=== PATIENT | female | born 1965 | race Caucasian/White ===

== ENCOUNTER → 2016-11-09 | Day surgery (SDC) | payer OTHER ==
[~2016-11-09] MED LIST: BUPIVACAINE/EPINEPHRINE 0.25% 50 ML VIAL ONE; BUPIVACAINE/EPINEPHRINE 0.5% 50 ML VIAL ONE; HEPARIN SODIUM - IV 10,000 UNITS/10 ML VIAL ONE; ISOSULFAN BLUE 50 MG/5 ML VIAL SQ ONE; LACTATED RINGER'S 1000 ML INJ 1,000 ML ONE; LIDOCAINE 1%/EPINEPHrine 1:100,000 SOLN 50 ML VIAL ONE; MEPERIDINE HCL 25 MG/ML VIAL ONE; MIDAZOLAM HCL 2 MG/2 ML VIAL ONE; PROPOFOL 200 MG/20 ML AMP IV ONE; SODIUM CHLORIDE 0.9% 20 ML VIAL ONE; ceFAZolin INJ 1,000 MG VIAL ONE
--- NOTE | 2016-11-09 16:34 | TN ---
cc: REINIER PAUL M.D., ZAFAR MD DATE OF SURGERY 11/09/2016 PREOPERATIVE DIAGNOSIS Right-sided breast cancer in need of breast conservation and placement of [id number]. POSTOPERATIVE DIAGNOSIS Right-sided breast cancer in need of breast conservation and placement of [id number]-T-[id number]. PROCEDURE 1. Left-sided placement [id number]-[id number] under fluoroscopic guidance. 2. Injection of Lymphazurin blue dye for identification and lymphatic mapping of sentinel nodes x2. 3. [place] node identification of two lymph nodes ex vivo count #1 972. Ex vivo count #2 399. 4. Needle-localized excisional quadrantectomy right lower outer quadrant right breast. ANESTHESIA General. SURGEON Dr. Paul. INDICATION This is a pleasant 51-year-old female who was found to have an invasive breast cancer. She was HER2 positive. She has seen a medical oncologist, Dr. Lucia. Plans were made for the above. PROCEDURE The patient taken to the operating room and placed in the position after anesthesia. She had previously been down to radiology where a guidewire was placed in the outer lower quadrant right breast. We inject 6 mL of Lymphazurin blue dye for lymphatic mapping. We are able to get a hot spot in the axillary region. After a time-out, prepping and draping with Betadine and given preoperative antibiotics we make an incision in the left infraclavicular area after cannulating the subclavian vein with the kit contained with the Quexeo-V-Tyqq kit. The guidewire was advanced under fluoroscopic guidance. A subcutaneous pocket is then made. The dilator introducer was then placed over the guidewire. The guidewire was removed. The catheter was then threaded into the introducer to a length of 20 cm where it was cut. The introducer was removed. The port is then attached to the catheter and snapped in place. The deep layer was closed with a 3-0 Vicryl and skin is closed with 4-0 Vicryl. It aspirates blood quite easily and flushed with heparinized saline solution. We close the deep layer and a sterile bandage is applied. We then direct our attention to the right side, right breast. We make an axillary incision after anesthetizing with Marcaine solution. We dissect down in to the axillary space identifying two hot nodes that were blue and the blue lymphatic channel can be seen coursing into the lymph node. The first one which is deep measures 972 on the ex vivo count. A second lymph node was found a little bit more proximal which is blue with an ex vivo count of 399. No other lymphadenopathy is appreciated. There is no other hot spot. After assuring hemostasis the skin is closed with a 4-0 Vicryl. We then direct our attention to the outer lower quadrant of the right breast where the guidewire was placed. It is about 6 cm from the nipple-areolar complex. The guidewire has been placed going in a lateral to medial direction in a slightly inferior to superior direction. Make a curvilinear incision, dissect circumferentially around the guidewire with sharp dissection, removing the specimen. The last thread of tissue that was removed the guidewire did become displaced. It is marked superiorly with a short stitch and a long stitch placed laterally. The specimen sent down to radiology where Dr. Balta Galloway states the area in question appears to have been removed. No other gross abnormalities felt in the quadrantectomy site. We then irrigate, assure hemostasis. The deep layers closed with a 3-0 Vicryl and skin is closed with 4-0 Vicryl. Steri-Strips applied. Sterile bandage applied. The patient tolerated the procedure and had no immediate postoperative complications. Stat portable chest x-ray done shows good placement without pneumothorax. Reinier Paul MD JALVINO/KK /3:18 PM /4:07 PM
== END | disposition home or self-care (01) ==
LOC: MERGE 07:59 → ESDC 07:59
PROVIDERS: ATTEND Surgery
DX: C50.911 Malignant neoplasm of unspecified site of right female breast (principal); Z17.0 Estrogen receptor positive status [ER+]
CPT/HCPCS: 00400; 00532; 01610; 19125; 36561; 38525; 38792; 76000; 88307; C1788; J0690; J1644; J2175; J2250; J3010; J7120; Q9968

== ENCOUNTER 2017-02-04 19:57 | Emergency (ER) | payer OTHER ==
[~2017-02-04] VITALS: Ht 162.6 cm; Wt 62.0 kg
[2017-02-04 20:10] VITALS: BP 100/56; PULSE 81; RESP 16; TEMP 98.5; O2SAT 100
--- NOTE | 2017-02-04 20:47 | PD ---
HPI Chief Complaint: Syncope/Near-Syncope Time Seen by Provider: 20:40 Travel History International Travel<30 days: No Contact w/Intl Traveler<30days: No Traveled to known affect area: No History of Present Illness HPI This is a 52 year old female with history of breast cancer, undergoing chemotherapy, who presents here after having a syncopal episode. The patient states that she was in her kitchen washing dishes when she felt dizzy and lightheaded. She states she walked into the living room and the next thing she remembers is her son standing over her calling 911. She denies any previous episodes of syncope. She does report that she had a slight headache today. She does report that she's not been drinking enough fluid over last 2 days. There is no reported diarrhea. She does have nausea now but denies any vomiting. There is no reported abdominal pain. She has reported urine is darker than normal. She denies dysuria, incontinence, frequency. There are no other complaints time my examination. PFSH Past Medical History Cancer: Yes (L BREAST) Chemotherapy: Yes (EVER 3 WEEKS, LAST DONE 02/01/17) Diminished Hearing: No Tetanus Vaccination: Unknown Influenza Vaccination: Yes ?: Not Menopausal: Yes Past Surgical History Gynecologic Surgery: Yes (CHEMICAL ABLATION) Other Surgery: Yes (CYST REMOVED FROM NECK, LUMPECTOMY/LYMPH NODES REMOVED L BREAST) Social History Alcohol Use: Yes (OCCASIONALLY) Tobacco Use: Yes (1/2 PPD) Substance Use: No Allergies-Medications (Allergen,Severity, Reaction): Coded Allergies: No Known Allergies (Unverified , 02/04/17) Review of Systems Except as stated in HPI: all other systems reviewed are Neg General / Constitutional: No: Fever Eyes: No: Diploplia, Blurred Vision HENT: Positive: Headaches, Lightheadedness, No: Vertigo (mild earlier today), Neck Pain Cardiovascular: Positive: Palpitations (prior to passing out), Syncope, No: Chest Pain or Discomfort Respiratory: Positive: Cough (dry), No: Shortness of Breath, Wheezing Gastrointestinal: Positive: Nausea, No: Vomiting, Diarrhea, Abdominal Pain Genitourinary: No: Frequency, Dysuria, Decreased Urinary Output Musculoskeletal: No: Myalgias, Arthralgias, Pain Skin: Positive Dryness Neurologic: Positive: Dizziness, Syncope, Headache (mild), No: Weakness Physical Exam Narrative GENERAL: Well developed well-nourished female in no acute respiratory distress. SKIN: Focused skin assessment warm/dry. HEAD: Atraumatic. Normocephalic. EYES: Pupils equal and round. No scleral icterus. No injection or drainage. ENT: No nasal bleeding or discharge. Mucous membranes pink and dry. NECK: Trachea midline. No JVD. Supple. CARDIOVASCULAR: Regular rate and rhythm. No murmur appreciated. RESPIRATORY: No accessory muscle use. Clear to auscultation. Breath sounds equal bilaterally. GASTROINTESTINAL: Abdomen soft, non-tender, nondistended. MUSCULOSKELETAL: No obvious deformities. No clubbing. No cyanosis. No edema. NEUROLOGICAL: Awake and alert. No obvious cranial nerve deficits. Motor grossly within normal limits. Normal speech. PSYCHIATRIC: Appropriate mood and affect; insight and judgment normal. Data Data Last Documented VS Vital Signs Date Time Temp Pulse Resp B/P Pulse Ox O2 Delivery O2 Flow Rate FiO2 02/04/17 21:55 85 16 108/59 100 Room Air 02/04/17 20:10 98.5 Orders Complete Blood Count With Diff (02/04/17 20:50) Comprehensive Metabolic Panel (02/04/17 20:50) Ckmb (Isoenzyme) Profile (02/04/17 20:50) Troponin I (02/04/17 20:50) Urinalysis - C+S If Indicated (02/04/17 20:50) Chest, Single Ap (02/04/17 20:50) Ct Brain W/O Iv Contrast(Rout) (02/04/17 20:50) Ecg Monitoring (02/04/17 20:50) Iv Access Insert/Monitor (02/04/17 20:50) Oximetry (02/04/17 20:50) Ondansetron Inj (Zofran Inj) (02/04/17 21:00) Sodium Chloride 0.9% Flush (Ns Flush) (02/04/17 21:00) Sodium Chlor 0.9% 1000 Ml Inj (Ns 1000 M (02/04/17 20:50) Acetaminophen (Tylenol) (02/04/17 22:00) Electrocardiogram (02/04/17 20:16) Sodium Chlor 0.9% 1000 Ml Inj (Ns 1000 M (02/04/17 23:30) Labs Laboratory Tests Test 02/04/17 02/04/17 20:30 22:55 White Blood Count 19.6 TH/MM3 Red Blood Count 3.13 MIL/MM3 Hemoglobin 9.8 GM/DL Hematocrit 28.4 % Mean Corpuscular Volume 90.6 FL Mean Corpuscular Hemoglobin 31.4 PG Mean Corpuscular Hemoglobin 34.6 % Concent Red Cell Distribution Width 16.8 % Platelet Count 256 TH/MM3 Mean Platelet Volume 8.5 FL Neutrophils (%) (Auto) % Lymphocytes (%) (Auto) % Monocytes (%) (Auto) % Eosinophils (%) (Auto) % Basophils (%) (Auto) % Neutrophils # (Auto) TH/MM3 Lymphocytes # (Auto) TH/MM3 Monocytes # (Auto) TH/MM3 Eosinophils # (Auto) TH/MM3 Basophils # (Auto) TH/MM3 CBC Comment AUTO DIFF Differential Total Cells 100 Counted Neutrophils % (Manual) 67 % Band Neutrophils % 17 % Lymphocytes % 13 % Monocytes % 1 % Neutrophils # (Manual) 16.9 TH/MM3 Metamyelocytes 2 % Differential Comment FINAL DIFF MANUAL Toxic Vacuolation PRESENT Platelet Estimate NORMAL Platelet Morphology Comment NORMAL Red Cell Morphology Comment NORMAL Sodium Level 138 MEQ/L Potassium Level 4.4 MEQ/L Chloride Level 107 MEQ/L Carbon Dioxide Level 23.5 MEQ/L Anion Gap 8 MEQ/L Blood Urea Nitrogen 22 MG/DL Creatinine 0.69 MG/DL Estimat Glomerular Filtration 89 ML/MIN Rate Random Glucose 82 MG/DL Calcium Level 8.3 MG/DL Total Bilirubin 0.5 MG/DL Aspartate Amino Transf 42 U/L (AST/SGOT) Alanine Aminotransferase 72 U/L (ALT/SGPT) Alkaline Phosphatase 109 U/L Total Creatine Kinase 86 U/L Troponin I LESS THAN 0.02 NG/ML Total Protein 6.3 GM/DL Albumin 3.1 GM/DL Urine Color YELLOW Urine Turbidity CLEAR Urine pH 6.5 Urine Specific [place] 1.010 Urine Protein NEG mg/dL Urine Glucose (UA) NEG mg/dL Urine Ketones NEG mg/dL Urine Occult Blood NEG Urine Nitrite NEG Urine Bilirubin NEG Urine Urobilinogen LESS THAN 2.0 MG/DL Urine Leukocyte Esterase MOD Urine RBC 1 /hpf Urine WBC 2 /hpf Urine Squamous Epithelial 1 /hpf Cells Urine Bacteria RARE /hpf Urine Hyaline Casts 1 /lpf Urine Mucus FEW /lpf Microscopic Urinalysis Comment CULT NOT INDICATED MDM Medical Decision Making Medical Screen Exam Complete: Yes Emergency Medical Condition: Yes Differential Diagnosis Vasovagal syncope versus metabolic arrangement versus metastatic brain lesions Narrative Course 52-year-old female with a history of breast cancer, presents after having a syncopal episode. The patient was noted to be volume depleted. She's been given 2 L of I V fluids. She walked to the bathroom after her second liter and felt fine. She is anemic with a hemoglobin of 9.3. Her white count was 18, 000. She has been receiving Neulasta with her chemotherapy and she'll be discharged and told to drink plenty fluids. She is instructed to take it easy and rest. She'll follow up with her hematology doctor next week. Diagnosis Primary Impression: Syncope Additional Impressions: Anemia Dehydration History of breast cancer Additional Instructions: Increase fluid intake. Rest and avoid heat. Return if feeling worse. Disposition: 01 DISCHARGE HOME Condition: Stable Jc Leos MD Feb 04, 2017 20:47
[2017-02-04] MEDS ORDERED: SODIUM CHLOR 0.9% 1000 ML INJ 1,000 ML IV ONE ×2 (20:50→23:30)
[2017-02-04] MEDS ORDERED: ONDANSETRON HCL 4 MG/2 ML VIAL IVP ONE (21:00)
[2017-02-04] MEDS ORDERED: SODIUM CHLORIDE 0.9% FLUSH 10 ML FLUSH IVF PRN (21:00)
[2017-02-04 21:32] LABS: HEMATOCRIT 28.4 % (35.0-46.0); MEAN CELL VOLUME 90.6 FL (80.0-100.0); MEAN CORPUSCULAR HEMOGLOBIN 31.4 PG (27.0-34.0); MEAN CORPUSCULAR HGB CONC 34.6 % (32.0-36.0); PLATELET COUNT 256 TH/MM3 (150-450); RED BLOOD COUNT 3.13 MIL/MM3 (4.00-5.30); RED CELL DISTRIBUTION WIDTH 16.8 % (11.6-17.2); WHITE BLOOD COUNT 19.6 TH/MM3 (4.0-11.0)
[2017-02-04 21:35] LABS: HEMO FLAGS AUTO DIFF
--- NOTE | 2017-02-04 21:45 | RADRPT ---
EXAM DATE/TIME: 02/04/2017 21:10 [facility] COMPARISON: No previous studies available for comparison. INDICATIONS : Palpitations MEDICAL HISTORY : Carcinoma, breast. SURGICAL HISTORY : [id number] ENCOUNTER: Initial ACUITY: 1 day PAIN SCORE: 0/10 LOCATION: Bilateral chest FINDINGS: There is a left subclavian CT compatible [id number] in place with tip in the SVC. The heart size i s normal. The lungs are free of focal consolidation. There some emphysematous/bullous change in the r ight upper lung. CONCLUSION: No acute abnormality is seen. Theodore Wilkins MD on February 04, 2017 at 21:41 Board Certified Radiologist. This report was verified electronically.
[2017-02-04 21:55] VITALS: BP 108/59; PULSE 85; RESP 16; O2SAT 100
--- NOTE | 2017-02-04 21:56 | RADRPT ---
EXAM DATE/TIME: 02/04/2017 21:20 [facility] COMPARISON: No previous studies available for comparison. INDICATIONS : Syncopal episode. Currently on chemo treatments. RADIATION DOSE: 31.02 CTDIvol (mGy) MEDICAL HISTORY : Breast cancer, left. SURGICAL HISTORY : Lumpectomy. ENCOUNTER: Initial ACUITY: 1 day PAIN SCALE: 0/10 LOCATION: cranial TECHNIQUE: Multiple contiguous axial images were obtained of the head. Using automated exposure control and adj ustment of the mA and/or kV according to patient size, radiation dose was kept as low as reasonably a chievable to obtain optimal diagnostic quality images. DICOM format image data is available electro nically for review and comparison. FINDINGS: CEREBRUM: The ventricles are normal for age. No evidence of midline shift, mass lesion, hemorrhage or acute in farction. No extra-axial fluid collections are seen. POSTERIOR FOSSA: The cerebellum and brainstem are intact. The 4th ventricle is midline. The cerebellopontine angle i s unremarkable. EXTRACRANIAL: The visualized portion of the orbits is intact. SKULL: The calvaria is intact. No evidence of skull fracture. CONCLUSION: No acute disease. Theodore Wilkins MD on February 04, 2017 at 21:54 Board Certified Radiologist. This report was verified electronically.
[2017-02-04 21:59] LABS: BANDS 17 % (0-6); METAMYELOCYTES 2 % (0-1); NEUTROPHIL # MANUAL DIFF 16.9 TH/MM3 (1.8-7.7); POLYS (SEG NEUTROPHILS) 67 % (16-70); WBC DIFF SAMPLE 100
[2017-02-04 22:00] LABS: PLATELET ESTIMATE SMEAR NORMAL (NORMAL); PLATELET MORPHOLOGY NORMAL (NORMAL); SCAN/DIFF FINAL DIFF MANUAL; TOXIC VACUOLATION PRESENT (NONE SEEN)
[2017-02-04] MEDS ORDERED: ACETAMINOPHEN 325 MG TAB PO ONE (22:00)
[2017-02-04 22:01] LABS: ALT (GPT) 72 U/L (10-53)
[2017-02-04 22:14] LABS: ALKALINE PHOSPHATASE 109 U/L (45-117); ANION GAP 8 MEQ/L (5-15); AST (GOT) 42 U/L (15-37); BICARBONATE 23.5 MEQ/L (21.0-32.0); BLOOD UREA NITROGEN 22 MG/DL (7-18); CHLORIDE 107 MEQ/L (98-107); GLOMERULAR FILTRATION RATE 89 ML/MIN (>89); POTASSIUM 4.4 MEQ/L (3.5-5.1); SODIUM (NA) 138 MEQ/L (136-145); TOTAL BILIRUBIN ADULT 0.5 MG/DL (0.2-1.0)
[2017-02-04 22:22] LABS: CREATINE KINASE 86 U/L (26-192)
[2017-02-04 23:42] LABS: BACTERIA, URINE RARE /hpf; BLOOD, URINE NEG (NEG); COMMENT (UR) CULT NOT INDICATED; CULTURE IF INDICATED CULT NOT INDICATED; GLUCOSE,URINE NEG (NEG); HYALINE CAST, URINE 1 /lpf (RARE); KETONE, URINE NEG (NEG); MUCUS URINE FEW /lpf (OCC); NITRITE,URINE NEG (NEG); PH, URINE 6.5 (5.0-8.5); SQUAMOUS EPITHELIAL CELL URINE 1 /hpf (0-5); URINE COLOR YELLOW (YELLW/STRAW)
[2017-02-05 01:51] VITALS: BP 106/58
--- NOTE | 2017-02-05 13:18 | EKG ---
Date Performed: 02/04/2017 Time Performed: 20:16:46 PTAGE: 52 years EKG: Sinus rhythm NORMAL ECG NO PREVIOUS TRACING DOCTOR: Eva Gamino Interpretating Date/Time 02/05/2017 13:17:32
== END 2017-02-05 01:52 | disposition home or self-care (01) ==
LOC: NEPE 19:57
DX: R55 Syncope and collapse (principal); D64.9 Anemia, unspecified; E86.0 Dehydration; R51 Headache; R11.0 Nausea; F17.200 Nicotine dependence, unspecified, uncomplicated; Z85.3 Personal history of malignant neoplasm of breast
CPT/HCPCS: 70450; 71010; 80053; 81001; 82550; 84484; 85007; 85027; 93005; 96361; 96374; 99285; J2405; J7030